=== PATIENT | female | born 1945 | race Two or more races ===

== ENCOUNTER 2023-10-17 17:59 | Emergency (ER) | payer OTHER, MEDICAID ==
[~2023-10-17] VITALS: Ht 142.2 cm; Wt 64.2 kg
[2023-10-17 22:30] VITALS: BP 145/70; PULSE 65; RESP 18; TEMP 97.8; O2SAT 98
== END 2023-10-18 05:45 | disposition home or self-care (01) ==
LOC: ER 17:59
DX: N32.81 Overactive bladder (principal); E11.9 Type 2 diabetes mellitus without complications; I10 Essential (primary) hypertension; Z46.6 Encounter for fitting and adjustment of urinary device; Z88.6 Allergy status to analgesic agent; Z85.51 Personal history of malignant neoplasm of bladder; Z87.448 Personal history of other diseases of urinary system
CPT/HCPCS: 51702